=== PATIENT | female | born 1975 | race Caucasian/White ===

== ENCOUNTER → 2021-06-24 00:35 | Outpatient (CLI) | payer BC, SELFPAY ==
[2021-06-24 23:50] LABS: SARS-CoV-2 RNA PCR Negative
== END ==
PROVIDERS: PCP Family Medicine; Visit Provider Internal Medicine Gastroenterology
DX: Z01.812 Encounter for preprocedural laboratory examination (principal); Z20.822 Contact with and (suspected) exposure to COVID-19
CPT/HCPCS: C9803; U0003; U0005

== ENCOUNTER 2021-06-27 00:34 | Day surgery (SDC) | payer BC, SELFPAY ==
[2021-06-15 11:10] VITALS: BMI 24.9
--- NOTE | 2021-06-24 17:55 | WPDANESEPP ---
Anes - Eval Pre Procedure Procedure: Operation Date: 06/27/21 08:15 Proposed Procedures p Screening Colonoscopy - Master Hernandez MD Date/Time: 06/24/21 17:55 Pre Op Diagnosis: family hx of colon ca, neoplasm screening Patient Data Age: 45 Gender: F Height: 1.65 m Weight: 68 kg Allergies Allergy/AdvReac Type Severity Reaction Status Date / Time No Known Allergies Allergy Unknown Verified 06/15/21 11:09 Home Medications Medication Instructions Recorded Confirmed Type divalproex 500 mg tablet,extended 1,000 mg PO DAILY tablet 09/24/19 06/15/21 History release 24 hr paroxetine HCl 20 mg tablet 20 mg PO DAILY 09/24/19 06/15/21 History blood sugar diagnostic #300 each 01/22/20 03/25/21 Rx pen needle, diabetic 32 gauge x #100 each 07/29/20 03/25/21 Rx / ergocalciferol (vitamin D2) 1,250 1,250 mcg PO WEEKLY #14 cap 09/29/20 06/15/21 Rx mcg (50,000 unit) capsule alprazolam 0.25 mg tablet 0.25 mg PO DAILY PRN tablet 12/29/20 06/15/21 History metformin 500 mg tablet,extended 500 mg PO DAILY 30 Days #30 tablet 03/25/21 06/15/21 Rx release 24 hr semaglutide 1 mg/dose (2 mg/1.5 1 mg SUBCUT WEEKLY #3 ml 05/17/21 06/15/21 Rx mL) subcutaneous pen injector atorvastatin 20 mg PO DAILY 06/15/21 06/15/21 History Patient hx anesthesia problems: none Family hx anesthesia problems: none PMFSH Past Medical History Medical History (Updated 12/29/20 @ 15:47 by Melissa Nuñez MD) Anxiety Bipolar depression Chronic headaches Degenerative joint disease of knee Depression Dyslipidemia High cholesterol Kidney infection Left knee pain Type 2 diabetes mellitus without complication, with long-term current use of insulin UTI (urinary tract infection) Vitamin D deficiency Surgical History Surgical History (Updated 06/24/21 @ 17:56 by Juan Manuel Craven DO) History of ankle surgery left ankle bone shaving - 1989 History of bilateral breast reduction surgery 1993 History of sleeve gastrectomy 2015 History of surgery history of panniculectomy History of tubal ligation Family History Family History Mother Diabetes mellitus Hypertension Grandparent Diabetes mellitus Hypertension Family history of lung cancer Family history of malignant neoplasm of brain Father Family history of alcoholism Family history of lung cancer Hodgkin lymphoma Other Family history of malignant neoplasm of breast in first degree relative Family history of malignant neoplasm of kidney Social History Social History Smoking status: Never smoker Second hand tobacco smoke exposure: Yes (during car rides once a week) Smoking end date: 11/19/02 Alcohol intake: never Substance use: never Substance use type: does not use Gender identity (if verbalized by the patient): Female Spiritual care concerns: No Exam Day of Procedure 06/24/21 17:55
[2021-06-27 07:44] VITALS: BP 129/96; PULSE 79; RESP 18; TEMP 35.5; O2SAT 100; BMI 25.8
[2021-06-27] MEDS: LACTATED RINGERS 1,000 ML 150 ML IV CONT (07:55)
[2021-06-27 07:57] LABS: Glucose Point of Care 189 mg/dl (65-105)
--- NOTE | 2021-06-27 07:59 | WPDANESEFPP ---
Anes - Eval Final PreProcedure Day of Procedure 06/27/21 07:59 Patient weight: overweight Heart: regular rate and rhythm Lungs: clear to auscultation Airway: Mallampati scale class II Neurological: alert and oriented Last oral intake: >/= 8 hours ASA classification: II Emergent: no Anesthetic plan: proceed Anesthesia type and monitoring: general GIVS and standard monitoring Informed Consent: The patient's anesthetic plan and its attendant risks and benefits were discussed with the patient/family/POA. Questions were solicited and answers provided to the satisfaction of the patient/family/POA.
--- NOTE | 2021-06-27 09:09 | PM.HPGS ---
History of Present Illness History of Present Illness Consent: Risks, benefits, and alternatives have been discussed and questions answered. Patient agrees to proceed with procedure. Chief complaint: family hx of colon ca, neoplasm screening Narrative: Doretha Garcia is a 45 year old female with gastric sleeve, several family members in mother side with colon cancer, never had colonoscopy Review of Systems Constitutional: Constitutional: Denies headache(s) and Denies weakness Eyes: Eyes: Denies blurry vision ENT: Reports Normal hearing present, Denies headache(s) and Denies neck pain Cardiovascular: Cardiovascular: Denies chest pain and Denies dyspnea Respiratory: Respiratory: Denies dyspnea Gastrointestinal: Gastrointestinal: Reports no additional gastrointestinal complaints Genitourinary: Genitourinary: Denies dysuria Musculoskeletal: Musculoskeletal: Denies neck pain Integumentary/Breasts: Skin/Breast: Denies dry skin Neurologic: Reports Normal hearing present, Denies headache(s) and Denies weakness Psychiatric: Psychiatric: Denies anxiety Endocrine: Endocrine: Denies change in body appearance Hematologic/Lymphatic: Hematologic/Lymphatic: Denies easy bleeding Allergic/Immunologic: Allergic/Immunologic: Denies urticaria PMFSH Past Medical History Medical History (Updated 06/27/21 @ 09:09 by Master Hernandez MD) Anxiety Bipolar depression Chronic headaches Degenerative joint disease of knee Depression Dyslipidemia Family history of colon cancer High cholesterol Kidney infection Left knee pain Type 2 diabetes mellitus without complication, with long-term current use of insulin UTI (urinary tract infection) Vitamin D deficiency Surgical History Surgical History (Updated 06/24/21 @ 17:56 by Juan Manuel Craven DO) History of ankle surgery left ankle bone shaving - 1989 History of bilateral breast reduction surgery 1993 History of sleeve gastrectomy 2016 History of surgery history of panniculectomy History of tubal ligation Family History Family History Mother Diabetes mellitus Hypertension Grandparent Diabetes mellitus Hypertension Family history of lung cancer Family history of malignant neoplasm of brain Father Family history of alcoholism Family history of lung cancer Hodgkin lymphoma Other Family history of malignant neoplasm of breast in first degree relative Family history of malignant neoplasm of kidney Social History Social History Smoking status: Never smoker Second hand tobacco smoke exposure: Yes (during car rides once a week) Smoking end date: 11/19/02 Alcohol intake: never Substance use: never Substance use type: does not use Living arrangements: with family Gender identity (if verbalized by the patient): Female Spiritual care concerns: No Meds Home Medications and Allergies Home Medications Medication Instructions Recorded Confirmed Type divalproex 500 mg tablet,extended 1,000 mg PO DAILY tablet 09/24/19 06/15/21 History release 24 hr paroxetine HCl 20 mg tablet 20 mg PO DAILY 09/24/19 06/15/21 History blood sugar diagnostic #300 each 01/22/20 03/25/21 Rx pen needle, diabetic 32 gauge x #100 each 07/29/20 03/25/21 Rx ergocalciferol (vitamin D2) 1,250 1,250 mcg PO WEEKLY #14 cap 09/29/20 06/15/21 Rx mcg (50,000 unit) capsule alprazolam 0.25 mg tablet 0.25 mg PO DAILY PRN tablet 12/29/20 06/15/21 History metformin 500 mg tablet,extended 500 mg PO DAILY 30 Days #30 tablet 03/25/21 06/15/21 Rx release 24 hr semaglutide 1 mg/dose (2 mg/1.5 1 mg SUBCUT WEEKLY #3 ml 05/17/21 06/15/21 Rx mL) subcutaneous pen injector atorvastatin 20 mg PO DAILY 06/15/21 06/15/21 History Allergies Allergy/AdvReac Type Severity Reaction Status Date / Time No Known Allergies Allergy Un
[2021-06-27 09:28] VITALS: BP 118/73; PULSE 80; RESP 22; O2SAT 100
[2021-06-27 09:38] VITALS: BP 132/93; PULSE 70; RESP 18; O2SAT 100
[2021-06-27 09:48] VITALS: BP 139/95; PULSE 67; RESP 14; O2SAT 100
== END 2021-06-27 09:55 | disposition home or self-care (01) ==
PROVIDERS: PCP Family Medicine; Visit Provider Internal Medicine Gastroenterology
PROC: 0DJD8ZZ Inspection of Lower Intestinal Tract, Via Natural or Artificial Opening Endoscopic (ICD-10-PCS; CPT 45378; principal; 2021-06-27 08:15)
DX: Z12.11 Encounter for screening for malignant neoplasm of colon (principal); Z80.0 Family history of malignant neoplasm of digestive organs; D12.3 Benign neoplasm of transverse colon; K57.30 Diverticulosis of large intestine without perforation or abscess without bleeding; E78.5 Hyperlipidemia, unspecified; E78.00 Pure hypercholesterolemia, unspecified; E11.9 Type 2 diabetes mellitus without complications; E55.9 Vitamin D deficiency, unspecified; M17.10 Unilateral primary osteoarthritis, unspecified knee; F41.9 Anxiety disorder, unspecified; F31.9 Bipolar disorder, unspecified; Z98.84 Bariatric surgery status
CPT/HCPCS: 45385; 45380; 82948; 88305; C9803; J2704; J7120; U0003; U0005

== ENCOUNTER → 2021-08-16 05:14 | Outpatient (CLI) | payer BC, SELFPAY ==
[2021-08-17 01:25] LABS: SARS-CoV-2 RNA PCR Negative
== END ==
PROVIDERS: PCP Family Medicine; Visit Provider Family Medicine
DX: Z20.822 Contact with and (suspected) exposure to COVID-19 (principal); R05 Cough
CPT/HCPCS: C9803; U0003; U0005

== ENCOUNTER 2022-07-28 15:07 | Outpatient (CLI) | payer BC, SELFPAY ==
[2022-07-28 18:40] LABS: Uric Acid 3.4 mg/dL (2.5-7.5)
== END 2022-07-28 15:08 | disposition home or self-care (01) ==
LOC: ANHGOSHLAB 15:09
PROVIDERS: PCP Family Medicine; Visit Provider Nurse Practitioner Family
DX: M79.672 Pain in left foot (principal)
CPT/HCPCS: 36415; 84550